=== PATIENT | female | born 1945 | race Caucasian/White ===

== ENCOUNTER 2020-08-30 06:18 | Observation (INO) ==
--- NOTE | 2020-08-11 10:55 | ANES ---
Anesthesia Pre Procedure Eval HOME MEDICATIONS glimepiride 4 mg tablet 4 mg PO BID tab 10/29/18 [Last Taken 11/25/18 18:00] levothyroxine 137 mcg capsule 137 mcg PO DAILY 10/29/18 [Last Taken 11/25/18 07:00] meloxicam 15 mg tablet 15 mg PO DAILY 10/29/18 [Last Taken Unknown] omeprazole 20 mg capsule,delayed release 20 mg PO BID 10/29/18 [Last Taken 11/26/18 18:00] acetaminophen 500 mg tablet 1,000 mg PO Q6H PRN tab 04/10/19 [Last Taken Unknown] arginine (L-arginine) 500 mg capsule 500 mg PO DAILY cap 07/09/20 [Last Taken Unknown] aspirin 325 mg tablet,delayed release 325 mg PO DAILY 07/09/20 [Last Taken Unknown] cholecalciferol (vitamin D3) 250 mcg (10,000 unit) capsule 250 mcg PO DAILY 07/09/20 [Last Taken Unknown] magnesium oxide 400 mg PO DAILY 07/09/20 [Last Taken Unknown] omega-3 fatty acids 1,000 mg capsule 1,000 mg PO DAILY 07/09/20 [Last Taken Unknown] tramadol 50 mg tablet 50 mg PO BID PRN #60 tab 07/09/20 [Last Taken Unknown] vitamin E succinate 100 unit tablet 450 mg PO DAILY 07/09/20 [Last Taken Unknown] HYDROcodone/ACETAMINOPHEN [Hydrocodon-Acetaminophen 5-325] 1 ea PO PRN PRN 08/11/20 [Last Taken Unknown] Naproxen Sodium [Aleve] 220 mg PO PRN PRN 08/11/20 [Last Taken Unknown] Allergies/Adverse Reactions: Allergies Allergy/AdvReac Type Severity Reaction Status Date / Time fenofibrate,micronized Allergy muscle Verified 08/11/20 09:38 [From Tricor] cramps - Planned Procedure Planned Procedure: LT Arthroplasty Total Hip Medication List Reviewed:: Yes Allergies Verified: Yes Medical History (Last Reviewed 08/11/20 @ 10:54 by Wilson Proctor CRNA) GERD (gastroesophageal reflux disease) Wears dentures full upper, lower partial Hyperlipidemia Onset Date: Unknown Hypertension Onset Date: Unknown Hypothyroidism Onset Date: Unknown Type 2 diabetes mellitus Onset Date: Unknown Surgical History (Last Reviewed 08/11/20 @ 10:54 by Wilson Proctor CRNA) H/O arthroscopic knee surgery Onset Date: ~04/2004, 04/2004 Dr. Giron. H/O colonoscopy Onset Date: 11/27/18 11/16/12 Mita-hyperplastic polyp. recheck 10 years. 11/27/18 Rossy- diverticulosis. Recheck 10 yrs. 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 History of hysterectomy Onset Date: ~1977 Dr. Spann: [facility] Family History (Last Reviewed 08/11/20 @ 10:54 by Wilson Proctor CRNA) Aunt Diabetes paternal Brother Diabetes Brother , age 38-Hodgkins lymphoma Hodgkin lymphoma Hypothyroidism Father , age 75-cancer Cancer prostate and liver CVA (cerebral vascular accident) Grandmother , maternal Cancer maternal-colon ca-dx age 70's Mother , age 93-Alzheimers Alzheimers disease Sister Diabetes Hypothyroidism Spleen enlarged Uncle Cancer paternal-colon ca - Family Anesthesia History Family History:: no untoward family reactions to anesthesia - Airway/Neck/Teeth Denture Type: Full upper, Full lower - Respiratory Smoking Status: Former smoker Sleep Apnea currently treated: No Sleep Apnea by current assessment: No - Cardiovascular Cardiac History: hypertension, hyperlipidemia Tolerate Activity: Fair - Gastrointestinal NPO since: instructed npo after mn - Anesthesia Assessment and Plan ASA Class: PS, III Anesthesia Type Plan: Spinal Planned difficult intubation/equipment available: No
[~2020-08-30 06:18] MED LIST: MORPHINE SULFATE 15 MG TABLET.SA PO PRN; RINGER'S SOLUTION,LACTATED 1,000 ML IV PRN; ROPIVACAINE HCL/PF 100 MG, EPINEPHrine 0.2 MG, KETOROLAC TROMETHAMINE 30 MG in NORMAL S... IJ PRN; TRANEXAMIC ACID 1,000 MG in NORMAL SALINE 100 ML IV PRN; ceFAZolin SODIUM 1 GM VIAL IV PRN
[2020-08-30] MEDS ORDERED: ISOPROPYL ALCOHOL 480 APPL BTL MC ONE (06:35)
[2020-08-30] MEDS ORDERED: ceFAZolin SODIUM 1 GM VIAL ONE (06:36)
[2020-08-30] MEDS ORDERED: fentaNYL CITRATE/PF 50 MCG/ML AMPUL ONE (07:36)
[2020-08-30] MEDS ORDERED: LIDOCAINE HCL 20 ML VIAL ONE (07:36)
[2020-08-30] MEDS ORDERED: ONDANSETRON HCL/PF 2 MG/ML VIAL ONE ×2 (07:36→10:27)
[2020-08-30] MEDS ORDERED: PROPOFOL VIAL IV ONE (07:37)
[2020-08-30] MEDS ORDERED: TRIAMCINOLONE ACETONIDE 40 MG/ML VIAL ONE (09:18)
[2020-08-30] MEDS ORDERED: TRIAMCINOLONE ACETONIDE 40 MG/ML VIAL IJ ONE (09:40)
--- NOTE | 2020-08-30 09:49 | OR ---
Operative Report - Dictated Report Narrative: Date: 08/30/2020 Preoperative diagnosis: Left hip degenerative joint disease, Left knee pain Postoperative diagnosis: Left hip degenerative joint disease, left knee pain Procedure: Left total hip arthroplasty. Left knee intra-articular injection Surgeon: Abrahan Shien M.D. Purification Operator Helper: Paul Marmolejo PA-C (provided an essential set of skilled, educated and assisted with transfer, positioning, prepping, draping, manipulation, traction, irrigation, suturing, and placement of dressings all of which cannot be performed by the available surgical crew) Anesthesia: Spinal and local periarticular joint injection. Complications: None Specimens: Bone. Estimated blood loss: 100 milliliters. Retained implants: Depuy Butler size 5 femoral stem standard offset. Size 50 millimeter outside diameter 3-hole Troutman Gription acetabular cup. 50 millimeter outside by 32 m illimeter inside diameter highly cross-linked acetabular liner. 32 millimeter diameter +1 millimeter cobalt chromium femoral head. Cancellous 6.5mm screw 35 millimeter length Indications: Mrs. Yoo is a 75-year-old female who has had longstanding left hip pain and acute on chronic left knee pain. This patient was followed in my clinic for period of time with significant complaints of left hip pain consistent with arthritic changes. She failed conservative measures including but not limited to activity modification, passage of time, medications, and other conservative measures. Patient wished to proceed with surgical treatment. The risks, benefits, and alternatives were discussed in clinic. The risks of , blood clots, bleeding, infection, nerve/tendon blood vessel/ injury, ma lposition of components, dislocation and/or instability of joint, intraoperative fracture, postoperative limited range of motion, persistent pain, failure of components, and need for additional procedures. Patient wished to proceed. Consent was obtained after answering all questions. Procedure: After marking the correct extremity on the floor, the patient was taken to the operating room. A timeout was performed. IV antibiotics consisting of Ancef were administered prior to the procedure. A spinal anesthetic was induced by anesthesia. A Sanchez catheter was inserted. The patient was then transitioned to a lateral position on a well-padded pegboard. An axillary roll was placed. The head was in neutral position. The non- operative down leg was well-padded with SCD and ALVINO hose in place. The arms were supported and padded to protect from any undue pressure on the bony prominences and nerves. A well-padded anterior and posterior pelvic and chest posts were secured in order to maintain a stable position of the pelvis. This was placed so that the pelvis was perpendicular to the floor. The body was in line with the pelvis. Once it was felt that we had protected all the bony pr ominences and the patient was well secured with a safety belt as well, the leg was pre-scrubbed with alcohol, prepped and draped in a standard sterile fashion. A standard anterior lateral hip incision was marked out over the greater trochanter. Ioban drapes were then placed. The skin incision was then made. Sharp dissection with a scalpel utilizing cautery for hemostasis was carried out down to the gluteus and iliotibial band fascia. This was split in line with the skin incision. The greater trochanter bursa was excised. The anterior and posterior margins of the abductor tendon were identified. The anterior 1/2-1/3 of the tendon was tagged and reflected off the greater trochanter leaving a sleeve of tendon for repair at the completion of the case. This exposed the underlying hip joint capsule. An inverted T-type capsulotomy was made extending this up to the brim of the acetabulum. Using Homans to assist with elevation of the soft tissues off the anterior, superior, and inferior aspects of the femoral neck, the hip was then placed in a figure 4 position and the femoral head was dislocated. With the leg in an externally rotated and adducted position, the cutting flag w as utilized in order to colten for a standard femoral neck cut approximately a fingerbreadth above the level of the lesser trochanter. This was done with reference to pre-operative films and overall alignment. This was done while protecting the surrounding soft tissues with Homans. The femoral head was then removed and sized for guidance on preparation of the acetabulum. It was noted that there was loss of articular cartilage on both the femoral head and weightbearing portions of the acetabulum. We then returned the leg to the table and turned our attention to the acetabulum. While protecting the surrounding soft tissues, the labrum and remaining tissue in the fovea were excised using a scalpel and cautery. A series of reamers up to size 50 millimeter were utilized to prepare the acetabulum. The final reamer had good purchase and exposed the bleeding subchondral bone. The acetabulum was then thoroughly irrigated ensuring that all bony and cartilaginous materials were removed, and the final acetabular shell was impacted into place. This was placed in approximately 45 degrees of abduction and 20 degrees of anteversion utilizing the outrigger and body axis for alignment. This had a good press fit. 1 6.5mm cancellous screw was placed in the superior posterior quadrant of the acetabulum. The shell was then thoroughly irrigated and the final polyethylene was impacted into place ensuring that it seated completely. This was then protected with a sponge while we returned our attention to the femur. With the leg in a figure 4 position, utilizing Homans for soft tissue p rotection, a box cutting osteotome, followed by Charnley awl, followed by serial reamers and broaches were utilized in order to prepare the femur. It was found that a size 5 broach gave good axial and rotational stability. The calcar reamer was utilized in order to clean up the cut edges. The proximal femur was visualized to ensure that there were no signs of fracture. A series of heads and necks were trialed. It was found that a standard offset neck and a + 1 femoral head gave good overall stability. There was minimal longitudinal instability. With the leg in the position of sleep, the femoral head was well covered. Hip range of motion was able to reach full extension and external rotation to greater than 75 degrees prior to impingement along the posterior acetabulum. The hip was able to be flexed to greater than 90 degrees with internal rotation greater than 60 degrees prior to anterior impingement. The limb lengths were near equal based on comparison to the contralateral side and the prior placed limb length stitch. At this point it was felt these were the appropriately sized femoral components as well as neck and femoral head. The trial implants were removed. The femur was thoroughly irrigated. The final implants were impacted into place, and the hip was reduced. After ensuring that there was no damage to the proximal femur, the standard periarticular joint injection of ropivacaine, Toradol, and epinephrine were injected into the joint capsule and surrounding soft tissues. Anesthesia then administered intravenous tranexamic acid. The capsule was repaired with a single interrupted #1 Vicryl. The abductor tendon was repaired to the greater trochanter utilizing #5 Ethibond through drill holes. This was oversewn with #1 Vicryl. The fascia was closed with interrupted #1 Vicryl and #1 Stratafix barbed suture. The wounds were thoroughly irrigated as we closed in layers. The deep and subcutaneous fat layers were closed with 0 and 3-0 Vicryl respectively. The subcutaneous tissue was closed with a running 3-0 Vicryl and the skin saran. All sponge, needle, blade, and instrument counts were correct prior to closing the wounds. Sterile dressings consisting of xeroform, 4 x 4's, and tape were applied. After finishing the hip procedure, a left knee intra-articular injection using the periarticular joint injection fluid (4 mL) and 40 mg of Kenalog was injected sterilely into the left knee through a superior lateral injection site. The patient was awoken and transferred to her hospital bed and then to the postanesthesia care unit in stab le condition. Postoperative condition: The plan is to admit to the medical/surgical inpatient floor postoperatively. There will be a projected 1 to 3 day hospital stay. Postoperatively 24 hours of IV antibiotics, pain control, physical therapy, occupational therapy, and medical comanagement will be utilized. Patient will be weightbearing as tolerated with anterior hip precautions. Postoperative films will be obtained in the recovery room.
[2020-08-30] MEDS ORDERED: diphenhydrAMINE HCL 50 MG/ML VIAL IV PRN (09:51)
[2020-08-30] MEDS ORDERED: ACETAMINOPHEN 500 MG TABLET PO PRN (09:51)
[2020-08-30] MEDS ORDERED: MAG HYDROX/ALUMINUM HYD/SIMETH 30 ML UDC PO PRN (09:51)
[2020-08-30] MEDS ORDERED: RINGER'S SOLUTION,LACTATED 1,000 ML IV PRN (09:51)
[2020-08-30] MEDS ORDERED: MORPHINE SULFATE 2 MG/ML DISP.SYRIN IV PRN (09:51)
[2020-08-30] MEDS ORDERED: ZOLPIDEM TARTRATE 5 MG TABLET PO PRN (09:51)
[2020-08-30] MEDS ORDERED: ONDANSETRON HCL/PF 2 MG/ML VIAL IV PRN (09:51)
[2020-08-30] MEDS ORDERED: MAGNESIUM HYDROXIDE 30 ML UDC PO PRN (09:51)
--- NOTE | 2020-08-30 10:23 | ANES ---
Post Anesthesia Discharge - Transfer of Care Transfer of Care handoff given to nurse: Yes - Discharge from PACU Discharge from PACU when meets criteria: Yes - Discharge to [facility] Discharge to [facility]-no complications/pt stable: Yes
--- NOTE | 2020-08-30 10:32 | ANES ---
Post Anesthesia Assessment - Vital Signs Vitals: Last Vital Signs Temp 35.9 C L 08/30/20 10:00 Pulse 76 08/30/20 10:30 Resp 16 08/30/20 10:30 BP 149/68 08/30/20 10:30 Pulse Ox 95 08/30/20 10:30 Airway Patency: Normal - Mental Status Level Of Consciousness: Awake - Pain Level Pain Score: 0 - N/V Assessment Nausea/Vomiting Presence: None Dehydration:: No
[2020-08-30] MEDS: KETOROLAC TROMETHAMINE 15 MG/ML VIAL IV SCH ×3 (10:58→22:24)
[2020-08-30] MEDS: ceFAZolin SODIUM 1 GM in DEXTROSE 5 % IN WATER 100 ML IV SCH ×6 (11:03→23:56)
[2020-08-30] MEDS: oxyCODONE HCL/ACETAMINOPHEN 1 TAB TABLET PO PRN ×2 (13:06→19:35)
[2020-08-30] MEDS: GLIMEPIRIDE 4 MG TABLET PO SCH (20:54)
[2020-08-30] MEDS: PANTOPRAZOLE SODIUM 20 MG TABLET.DR PO SCH (20:54)
[2020-08-30] MEDS: MORPHINE SULFATE 15 MG TABLET.SA PO SCH (20:55)
[2020-08-30] MEDS ORDERED: SENNOSIDES/DOCUSATE SODIUM 1 TAB TABLET PO SCH (21:00)
[2020-08-31] MEDS: KETOROLAC TROMETHAMINE 15 MG/ML VIAL IV SCH ×2 (04:03→10:05)
[2020-08-31] MEDS ORDERED: LEVOTHYROXINE SODIUM 137 MCG TABLET PO SCH (07:00)
[2020-08-31] MEDS: PANTOPRAZOLE SODIUM 20 MG TABLET.DR PO SCH (07:14)
[2020-08-31 07:21] LABS: Hematocrit 30.4 % (37.0-47.0); Mean Cell Volume 83.7 fl (78-100); Mean Corpuscular Hemoglobin 27.5 pg (27-31); Mean Corpuscular Hgb Conc 32.9 g/dl (32-36); Mean Platelet Volume 10.4 fl (8-12.5); Platelet Count 146 K/mm3 (150-450); Red Blood Count 3.63 M/mm3 (4.2-5.4); Red Cell Distribution Width 11.9 % (11.5-14.0)
[2020-08-31 07:27] LABS: BUN/Creatinine Ratio 10.9 (9.0-21.6); Calcium * 8.5 mg/dL (7.9-10.9); Carbon Dioxide 26.2 mmol/L (24-32.6); Estimated Creat Clear 47.5; Potassium 4.2 mmol/L (3.4-4.6)
[2020-08-31] MEDS: GLIMEPIRIDE 4 MG TABLET PO SCH (08:37)
[2020-08-31] MEDS: MORPHINE SULFATE 15 MG TABLET.SA PO SCH (08:37)
[2020-08-31] MEDS ORDERED: ENOXAPARIN SODIUM 40 MG/0.4 ML SYRG SC SCH (08:51)
[2020-08-31] MEDS: oxyCODONE HCL/ACETAMINOPHEN 1 TAB TABLET PO PRN ×3 (08:56→16:35)
[2020-08-31] MEDS ORDERED: OMEGA-3 FATTY ACIDS 1 CAP CAPSULE PO SCH (09:00)
[2020-08-31] MEDS ORDERED: MAGNESIUM OXIDE 400 MG TABLET PO SCH (09:00)
[2020-08-31] MEDS ORDERED: CHOLECALCIFEROL 5,000 UNIT TABLET PO SCH (09:00)
--- NOTE | 2020-08-31 14:19 | DS ---
(1) Status post left hip replacement Problem: Acute (2) Acute blood loss anemia Problem: Acute (3) Hyperlipidemia Problem: Chronic (4) Hypertension Problem: Chronic (5) GERD (gastroesophageal reflux disease) Problem: Acute (6) Hypothyroid Problem: Acute (7) Diabetes mellitus type 2 in obese Problem: Acute Date of Discharge:: 08/31/20 Hospital Course: Mrs. Anthony was admitted to the floor after undergoing left total hip arthroplasty. Tolerated this well. Was admitted to the floor postoperatively for 24 hours of IV antibiotics, pain control, medical comanagement, and occupational and physical therapy. OT and PT were consulted to assist with activities of daily living and ambulation. Was made weightbearing as tolerated with anterior hip precautions. Pain was initially controlled with IV regimen. This was transitioned to oral once tolerating a by mouth intake. Was resumed on home diet and medications. A Sanchez catheter was inserted in the operating room which was discontinued by postoperative day 1. Lovenox, SCDs, and ALVINO hose were utilized for DVT prophylaxis. Vital signs remained stable to the hospital course. Labs were obtained which showed a final hemoglobin of 10.0 grams. Pre- op hemoglobin was 11.4. She was asymptomic and thus the acute blood loss anemia will be monitored and treated clinically. BMP was reviewed and was stable. Physical examination throughout the hospital course showed an extremity that had sensation that was intact to light touch, palpable pulses, a benign wound, motor intact to the toes, ankle, and knee. Once an oral pain regimen was tolerated and physical therapy goals were met, it was felt that they were stable for discharge to home. Instructions: Continue with weightbearing as tolerated and anterior hip precautions. Do not bathe or soak the wound. Keep the wound clean and dry and cover with dry gauze and tape. Change every 2-3 days as needed if there is any drainage. Cover wound while showering. Continue with physical therapy. Resume home diet. Report any fever over 101.5 Fahrenheit, uncontrolled pain, increased drainage, foul odor of drainage, new or increased calf pain or shortness of breath, or any other significant complaints. A 325mg daily aspirin will be started after finishing anticoagulation if not allergic. Continue with ALVINO hose on the operative extremity until instructed otherwise. No driving until instructed otherwise. Follow up in approximately 2-3 weeks. Procedures Performed: see notes below List Procedures: Left total hip arthroplasty Results and Findings: Lab Pending Results 08/31/20 07:00: WBC 9.0, RBC 3.63 L, Hgb 10.0 L, Hct 30.4 L, MCV 83.7, MCH 27.5, MCHC 32.9, RDW 11.9, Plt Count 146 L, MPV 10.4 08/31/20 07:00: Sodium 130 L, Plasma Sodium 132, Potassium 4.2, Chloride 96 L, Carbon Dioxide 26.2, Anion Gap 12.0, BUN 10, Creatinine 0.92, Est GFR (Non-Af Amer) 63, BUN/Creatinine Ratio 10.9, Random Glucose 237 H, Calcium 8.5 Disposition: Home self-care Condition: Good Discharge Activity: Weight bearing, Other - Anterior hip precautions Discharge Diet: Consistent carbs Additional Patient Instructions (free text): Physical Therapy at [facility] in [place] on September 02 at 2:00pm. Please fax demographics and PT order to fax# [phone]. Follow up [facility] appointment SundaySeptember 13 at 1:15 p.m. Prescriptions (Any new or edited meds): Enoxaparin Sodium [Lovenox] 40 mg SC Q24H #7 disp.syrin Transmission Status: Pending to [facility] Morphine Sulfate [Ms Contin] 15 mg PO Q12H #10 tablet.sa Transmission Status: Sent to [facility] oxyCODONE HCL/ACETAMINOPHEN [Percocet 5 MG/325 MG] 1 - 2 tab PO Q4H PRN #50 tab PRN Reason: Moderate Pain (Pain Scale 4-6) Transmission Status: Sent to [facility] Sennosides/Docusate Sodium [Senokot-S] 2 tab PO HS #60 tab Transmission Status: Pending to [facility] Complete Home Medications List: Complete Home Medication List: glimepiride 4 mg tablet 4 mg PO BID tab 10/29/18 levothyroxine 137 mcg capsule 137 mcg PO DAILY 10/29/18 omeprazole 20 mg capsule,delayed release 20 mg PO BID 10/29/18 arginine (L-arginine) 500 mg capsule 500 mg PO DAILY cap 07/09/20 aspirin 325 mg tablet,delayed release 325 mg PO DAILY 07/09/20 cholecalciferol (vitamin D3) 250 mcg (10,000 unit) capsule 250 mcg PO DAILY 07/09/20 magnesium oxide 400 mg PO DAILY 07/09/20 omega-3 fatty acids 1,000 mg capsule 1,000 mg PO DAILY 07/09/20 vitamin E succinate 100 unit tablet 450 mg PO DAILY 07/09/20 Enoxaparin Sodium [Lovenox] 40 mg SC Q24H #7 disp.syrin 08/31/20 Morphine Sulfate [Ms Contin] 15 mg PO Q12H #10 tablet.sa 08/31/20 Sennosides/Docusate Sodium [Senokot-S] 2 tab PO HS #60 tab 08/31/20 oxyCODONE HCL/ACETAMINOPHEN [Percocet 5 MG/325 MG] 1 - 2 tab PO Q4H PRN #50 tab 08/31/20 Amb Orders for Discharge: PT Evaluation and Treatment* Facility: [facility], Location: Rehabilitation Services Forms: Patient Portal Registration
[2020-08-31 16:41] VITALS: BP 177/71
== END 2020-08-31 17:24 | disposition home or self-care (01) ==
LOC: SUR 06:18 → MS 06:18
PROVIDERS: ADMIT Orthopaedic Surgery; ATTEND Orthopaedic Surgery
DX: M16.12 Unilateral primary osteoarthritis, left hip; E06.9 Thyroiditis, unspecified; M25.562 Pain in left knee; D62 Acute posthemorrhagic anemia; E11.9 Type 2 diabetes mellitus without complications; E78.5 Hyperlipidemia, unspecified; I10 Essential (primary) hypertension